=== PATIENT | male | born 1935 | race Caucasian/White ===

== ENCOUNTER 2017-05-19 10:55 | Day surgery (SDC) | payer MEDICARE ==
[2017-05-16 15:38] VITALS: BMI 31.3
[~2017-05-19 10:55] MED LIST: LACTATED RINGERS 1,000 ML IV SCH
[2017-05-19 11:36] VITALS: RESP 16; TEMP 96.9
[2017-05-19] MEDS ORDERED: LIDOCAINE 1% 20 ML VIAL (10MG/ML) FOR IV START INTRADERMA ONE (11:43)
[2017-05-19] MEDS ORDERED: PROPOFOL 10 MG/ML 20 ML VIAL IV ONE (12:22)
--- NOTE | 2017-05-19 12:44 | P.PCN ---
Date of Procedure: 05/19/17 Preoperative Diagnosis: Postoperative Diagnosis: Procedure(s) Performed: BRIEF HISTORY: Patient is a 82-year-old pleasant white male, scheduled for an elective colonoscopy as a part of evaluation of prior history of colon polyps. Last colonoscopy was done 5 years ago. PROCEDURE PERFORMED: Colonoscopy with biopsy. PREOPERATIVE DIAGNOSIS: History of colon polyps. IV sedation per Anesthesia. PROCEDURE: After informed consent was obtained, the patient, was brought into the endoscopy unit. IV sedation was administered by Anesthesia under continuous monitoring. Digital rectal examination was normal. Initially the Olympus CF- 160 flexible video colonoscope was then inserted in the rectum, gradually advanced into the cecum without any difficulty. Careful examination was performed as the scope was gradually being withdrawn. Ileocecal valve and the appendiceal orifice were visualized and appeared normal. Prep was excellent. Mucosa of the cecum, ascending colon, transverse colon, appeared normal. In the descending colon there was a 5 mm polyp that was removed by biopsy. Moderate left-sided diverticulosis seen. Rest of the descending colon, sigmoid colon, and rectum appeared normal. Retroflexion was performed in the rectum and no lesions were seen. The patient tolerated the procedure well. IMPRESSION: 5 mm descending colon polyp status post removal by biopsy. Moderate left sided diverticulosis RECOMMENDATIONS: Findings of this examination were discussed with the patient as her family. He was advised to follow with the biopsy results. Given his advanced age I would not recommend any further screening colonoscopies at this time. Implants: Indications for Procedure: Operative Findings: Description of Procedure:
[2017-05-19 13:07] VITALS: BP 142/82; PULSE 76
== END 2017-05-19 13:21 | disposition home or self-care (01) ==
LOC: ORWHC2ENDO 10:55
PROVIDERS: ATTEND Internal Medicine Gastroenterology
DX: Z12.11 Encounter for screening for malignant neoplasm of colon (principal); Z86.010 Personal history of colon polyps; K57.30 Diverticulosis of large intestine without perforation or abscess without bleeding; D12.3 Benign neoplasm of transverse colon; I48.91 Unspecified atrial fibrillation; C61 Malignant neoplasm of prostate; N40.0 Benign prostatic hyperplasia without lower urinary tract symptoms; Z87.891 Personal history of nicotine dependence; Z79.82 Long term (current) use of aspirin; Z79.899 Other long term (current) drug therapy
CPT/HCPCS: 88305; 45380; J2704

== ENCOUNTER → 2020-08-28 | Outpatient (CLI) | payer MEDICARE ==
--- NOTE | 2020-08-28 15:22 | NM ---
EXAMINATION TYPE: NM bone scan whole body DATE OF EXAM: 08/28/2020 COMPARISON: NONE HISTORY: Prostate cancer. History of bilateral knee replacement. Delayed whole-body scanning was performed following the injection of 24.0 mCi Tc 99m MDP. Images acq uired 3.75 hours post injection. Whole body images anterior and posterior projection along with addit ional spot views of the thorax abdomen and pelvis. FINDINGS: Heterogeneous areas of increased radiotracer uptake throughout the lumbar spine at multiple levels fa vor degenerative change as patient states history of lumbar spine osteoarthritis. Lucency from bilateral knee prosthesis noted. Normal excretion is present. Asymmetric increased uptake left ankle and hindfoot, correlate for old trauma or degenerative change at this level. Mild paranasal sinus uptake, correlate for sinusitis. Increased symmetric uptake sternoclavicular joints, presumed degenerative. Similar mild uptake bilate ral shoulder region. Increased uptake anterior mid to lower cervical spine of uncertain etiology, possible large spurs. Co rrelate clinically. No convincing suspicious scintigraphic uptake to suggest metastatic disease to the bone as majority o f cervical and thoracic spine and ribs show no increased radiotracer uptake IMPRESSION: As above.
== END | disposition home or self-care (01) ==
LOC: RADNMMAIN 09:41
PROVIDERS: ATTEND Urology
DX: C61 Malignant neoplasm of prostate (principal); R93.7 Abnormal findings on diagnostic imaging of other parts of musculoskeletal system; Z96.653 Presence of artificial knee joint, bilateral
CPT/HCPCS: 78306; A9503

== ENCOUNTER → 2021-08-21 | Outpatient (CLI) | payer MEDICARE ==
--- NOTE | 2021-08-24 12:35 | MM ---
Reason for exam: clinical finding. Baseline mammogram. History: Patient history of other cancer. Physical Findings: Nurse did not find any significant physical abnormalities on exam. MG 3D Diag Mammo W/Cad SARMAD Bilateral CC and MLO view(s) were taken. The breast tissue is heterogeneously dense. This may lower the sensitivity of mammography. Asymmetry. Increased left subareolar appears like gynecomastia. These results were verbally communicated with the patient and result sheet given to the patient on 08/21/21. ASSESSMENT: Incomplete: need additional imaging evaluation, BI-RAD 0 RECOMMENDATION: Ultrasound of the left breast.
--- NOTE | 2021-08-24 12:36 | USB ---
Reason for exam: additional evaluation requested from abnormal screening. History: Patient history of other cancer. US Breast LT Left complete breast ultrasound includes all four quadrants, the retroareolar region and axilla. Finding demonstrates a 1.2 x 1.4cm irregular area at the posterior nipple. Asymmetric size but similar to left. These results were verbally communicated with the patient and result sheet given to the patient on 08/21/21. ASSESSMENT: Probably benign, BI-RAD 3 RECOMMENDATION: Follow-up diagnostic mammogram and ultrasound of the left breast in 6 months.
== END | disposition home or self-care (01) ==
LOC: RADMAMWWP 09:24
PROVIDERS: ATTEND Internal Medicine
DX: R92.8 Other abnormal and inconclusive findings on diagnostic imaging of breast (principal)
CPT/HCPCS: 77066; 76641; G0279; 77062

== ENCOUNTER → 2023-04-21 | Outpatient (CLI) | payer MEDICARE ==
--- NOTE | 2023-04-21 10:23 | US ---
EXAMINATION TYPE: US venous doppler duplex LE DATE OF EXAM: 04/21/2023 9:48 AM COMPARISON: NONE CLINICAL INDICATION: Male, 88 years old with history of M79.605 PAIN IN LEFT LEG; Intermittent Left a nkle edema. pain with walking bilateral legs SIDE PERFORMED: Bilateral TECHNIQUE: The lower extremity deep venous system is examined utilizing real time linear array sonog antonio with graded compression, doppler sonography and color-flow sonography. VESSELS IMAGED: Common Femoral Vein Deep Femoral Vein Greater Saphenous Vein * Femoral Vein Popliteal Vein Small Saphenous Vein * Proximal Calf Veins (* superficial vessels) Right Leg: No evidence of DVT Left Leg: No evidence of DVT. 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 There is normal flow, compressibility, vascular waveforms.
--- NOTE | 2023-04-21 15:24 | CT ---
EXAMINATION TYPE: CT chest w con DATE OF EXAM: 04/21/2023 COMPARISON: None HISTORY: 88-year-old male J43.2, emphysema, SOB TECHNIQUE: Contiguous axial scanning of the chest after the administration of 100 mL of Isovue 300. Coronal/sagittal reconstructions performed. CT DLP: 475.9mGycm. Automatic exposure control utilized for a dose reduction. FINDINGS: The heart is upper limits of normal in size without pericardial effusion. Extensive LAD coronary seven ry calcifications are present. Prominent epicardial fat pad also noted. Borderline ectatic aortic root at 3.5 cm and ascending aorta at 3.5 cm. Conventional arch vessel bran elena anatomy with mild atherosclerotic calcifications. Mildly tortuous descending thoracic aorta wit h additional mild to moderate atherosclerotic calcifications. Mildly enlarged caliber to the main right and left pulmonary arteries measuring up to 2.7 cm may refl ect underlying pulmonary hypertension. Scattered nonenlarged mediastinal lymph nodes. There are some clustered right hilar lymph nodes rangi ng in size from 9 mm to 1.2 cm. These are probably reactive/post inflammatory and can be reassessed a t a 3 month follow-up. Otherwise, no lymphadenopathy by CT size criteria. Mild gynecomastia, asymmetr ic on the left. Minimal biapical pleural parenchymal scarring. Strandy scarring or atelectasis at the lung bases. No consolidation or pleural effusion. Minimal emphysematous change. Small hiatal hernia. Visualized upper abdomen shows a few scattered renal cortical cysts measuring up to 1.9 cm. Moderate atherosclerotic calcifications abdominal aorta. Mild stool burden. Mild colonic diverticulosis. Bones: Moderate to advanced degenerative disc disease mid to lower thoracic spine. Mildly accentuated lower thoracic kyphosis. Anterior endplate spondylosis lower thoracic spine. IMPRESSION: 1. COPD with minimal emphysematous change. Possible underlying pulmonary hypertension. 2. Extensive LAD coronary artery calcification suggesting CAD. 3. Borderline to mildly enlarged clustered right hilar lymph nodes measuring up to 1.2 cm. Probably r eactive/post inflammatory. Follow-up CT chest in 3 months to ensure stability/resolution.
== END | disposition home or self-care (01) ==
LOC: RADUSWWP 09:22
PROVIDERS: ATTEND Internal Medicine
DX: J43.2 Centrilobular emphysema (principal); J43.9 Emphysema, unspecified; I25.10 Atherosclerotic heart disease of native coronary artery without angina pectoris
CPT/HCPCS: 82565; 84520; 93970; 71260; 36415; Q9967

== ENCOUNTER → 2023-08-25 | Outpatient (CLI) | payer MEDICARE ==
[2023-08-25 08:15] LABS: African American GFR (CKD) 84 (>60 ml/min/1.73 sqM); Blood Urea Nitrogen 24 mg/dL (9-20); Non-African American GFR(CKD) 73 (>60 ml/min/1.73 sqM)
--- NOTE | 2023-08-25 08:40 | CT ---
EXAMINATION TYPE: CT chest w con DATE OF EXAM: 08/25/2023 COMPARISON: 04/21/2023 HISTORY: emphysema CT DLP: 525.3 mGycm Automated exposure control for dose reduction was used. CONTRAST: CT scan of the chest is performed with IV Contrast, patient injected with 100 mL of Isovue 300. FINDINGS: LUNGS: Hyperinflation compatible with COPD with minimal emphysematous changes are noted. No evidence of focal consolidation, pleural effusion or volume loss. Pleural-based calcification left lower lobe. No pulmonary nodule or mass identified. MEDIASTINUM: There are no greater than 1 cm hilar or mediastinal lymph nodes. No pericardial effusi on is seen. Thoracic aorta is of normal caliber. Stable cardiomegaly with coronary artery calcificat ions. Short axis right hilar lymph nodes measure 9 mm. UPPER ABDOMEN: No significant abnormality appreciated. OTHER: No additional significant abnormality is seen. IMPRESSION: 1. COPD with minimal emphysematous change. 2. No evidence of adenopathy greater than 1 cm.
== END | disposition home or self-care (01) ==
LOC: RADCTMAIN 07:39
PROVIDERS: ATTEND Internal Medicine
DX: J43.2 Centrilobular emphysema (principal)
CPT/HCPCS: 82565; 84520; 71260; Q9967 ×2